=== PATIENT | male | born 1955 | race American Indian/Alaskan Native ===

== ENCOUNTER 2021-07-04 05:44 | Day surgery (SDC) | payer MEDICARE, OTHER ==
[2021-06-28 10:46] LABS: Hematocrit 46.1 % (35.5-45.6); Mean Corpuscular HGB Conc 33 % (32-34); Mean Corpuscular Volume 89 fl (84-94); Platelet Count 284 K/mm3 (140-440); Red Blood Count 5.17 M/mm3 (3.65-5.03); Red Cell Distribution Width 14.1 % (13.2-15.2)
[2021-06-28 11:12] LABS: Alanine Aminotransferase 50 units/L (7-56); Albumin 4.5 g/dL (3.9-5); BUN/Creatinine Ratio 18; Blood Urea Nitrogen 14 mg/dL (9-20); Calcium 9.6 mg/dL (8.4-10.2); Hemolysis Index 5
[2021-07-04] MEDS ORDERED: LACTATED RINGERS 1,000 ML IV SCH (06:00)
[2021-07-04] MEDS ORDERED: BACTERIOSTATIC SODIUM CHLORIDE 0.9% 30 ML VIAL INFILTRATI ONE (06:19)
--- NOTE | 2021-07-04 07:32 | Anesthesia Consultation ---
Anesthesia Consult and Med Hx Date of service: 07/04/21 - Airway Anesthetic Teeth Evaluation: Good, Dentures (upper) ROM Head & Neck: Adequate Mental/Hyoid Distance: Adequate Mallampati Class: Class II Intubation Access Assessment: Probably Good - Pre-Operative Health Status ASA Pre-Surgery Classification: ASA3 Proposed Anesthetic Plan: General - Pulmonary Hx Smoking: No Hx Sleep Apnea: No (ALFREDA PRE SCREEN HIGH RISK) - Cardiovascular System Hx Hypertension: Yes (2008) Hx Coronary Artery Disease: No (high cholesterol) - Central Nervous System Hx Psychiatric Problems: No - Endocrine Hx Insulin Dependent Diabetes: Yes - Hematic Hx Anemia: No - Other Systems Hx Cancer: Yes (prostate CA, seeds 2008)
--- NOTE | 2021-07-04 07:33 | Anesthesia Day of Surgery ---
Anesthesia Day of Surgery - Day of Surgery Patient Examined: Yes Patient H&P Reviewed: Yes Patient is NPO: Yes
[2021-07-04] MEDS ORDERED: WATER FOR IRRIG STERILE 2000 ML IR ONE (07:49)
[2021-07-04] MEDS ORDERED: SODIUM CHLORIDE 0.9% 1000 ML 1,000 ML ONE (07:56)
[2021-07-04] MEDS ORDERED: propofoL 200 MG/20 ML VIAL IV ONE (07:57)
[2021-07-04] MEDS ORDERED: GABAPENTIN 300 MG CAP ONE (07:57)
[2021-07-04] MEDS ORDERED: HYDROmorphone 1 MG/1 ML INJ ONE (07:57)
[2021-07-04] MEDS ORDERED: ROCURONIUM 50 MG/5 ML INJ IV ONE (07:58)
[2021-07-04] MEDS ORDERED: LIDOCAINE MPF (2%) 20 MG/1 ML VIAL 5 ML ONE (07:59)
[2021-07-04] MEDS ORDERED: CELECOXIB 200 MG CAP PO NR (08:00)
[2021-07-04] MEDS ORDERED: GABAPENTIN 500 MG/10 ML ORAL LIQD PO NR (08:00)
[2021-07-04] MEDS ORDERED: MIDAZOLAM 2 MG/2 ML INJ IV NR (08:00)
[2021-07-04] MEDS ORDERED: FAMOTIDINE 20 MG/2 ML INJ IV NR (08:00)
[2021-07-04] MEDS ORDERED: ceFAZolin/Water 2 GM/20 ML 2 GM/20 ML SYRINGE IV ONE (08:06)
[2021-07-04] MEDS ORDERED: HYDROmorphone 1 MG/1 ML INJ IV PRN ×2 (08:30)
[2021-07-04] MEDS ORDERED: ONDANSETRON 4 MG/2 ML INJ IV PRN (09:00)
[2021-07-04] MEDS ORDERED: ceFAZolin/Water 2 GM/20 ML 2 GM/20 ML SYRINGE IV NR (09:30)
[2021-07-04] MEDS ORDERED: SODIUM CHLORIDE 0.9% 1000 ML IV SOLN IR ONE (10:00)
[2021-07-04] MEDS ORDERED: GLYCOPYRROLATE 0.4 MG/2 ML INJ ONE (10:10)
[2021-07-04] MEDS ORDERED: NEOSTIGMINE 10MG/10 ML INJ MDV ONE (10:10)
[2021-07-04] MEDS ORDERED: ONDANSETRON 4 MG/2 ML INJ ONE (10:11)
[2021-07-04] MEDS ORDERED: KETOROLAC 30 MG/1 ML INJ ONE (10:11)
[2021-07-04] MEDS ORDERED: WATER FOR IRRIG STERILE 1,500 ML BOTTLE IR ONE (10:29)
--- NOTE | 2021-07-04 11:29 | Post Operative Note ---
Date of procedure: 07/04/21 Pre-op diagnosis: cap recurrent Post-op diagnosis: same Findings: small gland seeds Procedure: cysto dil cryo Anesthesia: MARY Surgeon: AKIL YEE Estimated blood loss: minimal Pathology: none Condition: stable Disposition: PACU
--- NOTE | 2021-07-04 11:30 | Discharge Summary ---
Short Stay Discharge Plan Activity: other (no straining ) Weight Bearing Status: Full Weight Bearing Diet: low fat, low cholesterol, low salt Wound: open to air, other (ice in rr and x 24 hrs ) Durable Medical Equipment Needed Upon Discharge: other (home with [facility] ) Additional Instructions: KEEP FOLLOW UP APPOINTMENT HOME WITH [facility] ICE PACK NEEDED TAKE MEDS PRESCRIBED DO NOT DRIVE, OPERATE HEAVY EQUIPMENT OR SIGN LEGAL DOCUMENTS X 24 HRS Follow up with: PRIMARY CARE, [Primary Care Provider] - 7 Days Forms: Outpatient Surgery DC Inst.
--- NOTE | 2021-07-04 12:30 | Operative Report ---
DATE OF SURGERY: 07/04/2021 PREOPERATIVE DIAGNOSIS: Recurrent prostate cancer post-brachytherapy. 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 PROCEDURES: Cystoscopy, urethral dilatation, cryosurgical ablation of the prostate. SURGEON: Dr. Orellana. ANESTHESIA: General. FINDINGS: This is a gentleman with recurrent prostate cancer, left lobe. All risks and implications discussed. He is 66 years of age. DESCRIPTION OF PROCEDURE: The patient was brought to the operating room and placed on the operating table. Following induction of anesthesia, placed in lithotomy position, prepped and draped in usual sterile fashion. Cystourethroscopy showed a stricture at the membranous urethra, which was easily dilated. It was very short. It was dilated over a wire without difficulty. There was no significant bleeding. At this point, the ultrasound was placed. A 20-German Councill was placed and the gland was quite short, approximately 2.5-3 cm in length, so all the probes were changed and adjusted accordingly. Probes 1 and 2 and 3 and 4 were placed. There was no room for more probes in that, especially with a very short gland. We placed the ____ and external sphincter in excellent position. At this point, once we checked him in multiple images multiple times, the warmer was placed over a stiff guidewire and seen to go in without difficulty under ultrasound guidance. At this point, everything was rechecked and the first freeze was carried out approximately 8 minutes and we had excellent ice. There was a little tissue in the midline, which was difficult to freeze, the urethra was quite posterior, so the second time we readjusted one of the probes and get a little more length as well and did a second freeze. The left side, which had the cancer, was excellent freeze. The right side was an excellent freeze on the second time. The patient tolerated the procedure well. The warmer was kept in until it was all thawed out and then we placed a Councill catheter without difficulty under ultrasound guidance. The patient tolerated the procedure well. Urine was clear. Brought to recovery room. Pressure was applied. One suture was applied to the cryoprobe site, brought to recovery in stable condition. TID: [id number] RECEIPT: [id number] TWAN/CHARANJIT/ROSANA
[2021-07-04 15:35] VITALS: BP 139/86
--- NOTE | 2021-07-04 17:26 | Post Anesthesia Evaluation ---
- Post Anesthesia Evaluation Patient Participated: Yes Airway Patent: Yes Stable Respiratory Function: Yes Nausea/Vomiting: No Temp > 96.8F: Yes Pain Manageable: Yes Adequeate Hydration: Yes Anesthesia Complications: No Block Receding Appropriately: Not Applicable Patient on Ventilator: No
== END 2021-07-04 12:25 | disposition home or self-care (01) ==
LOC: OR 05:44
PROVIDERS: ATTEND Urology
DX: C61 Malignant neoplasm of prostate (principal); N35.919 Unspecified urethral stricture, male, unspecified site; Z20.822 Contact with and (suspected) exposure to COVID-19; I10 Essential (primary) hypertension; E11.9 Type 2 diabetes mellitus without complications; Z79.899 Other long term (current) drug therapy; Z98.890 Other specified postprocedural states
CPT/HCPCS: 36415; 52281; 55873; 80053; 82962; 85027; C1726; C1769; C2618; J0690; J1170; J1815; J1885; J2250; J2405; J2704; J2710; J3490; J7030; J7120; U0003; Q0162